=== PATIENT | female | born 1980 | race Caucasian/White ===

== ENCOUNTER 2021-05-18 18:21 | Emergency (ER) | payer OTHER, SELFPAY ==
[~2021-05-18] VITALS: Ht 165.1 cm; Wt 98.4 kg
--- NOTE | 2021-05-18 18:22 | NUR ---
REJI HENSON TO ER BED 2 Addendum: 05/18/21 at 1857 by [facility] 1822 REJI BERNSTEIN TO ER BED 2
[2021-05-18 18:25] VITALS: BP 124/85
[2021-05-18] MEDS ORDERED: ACETAMINOPHEN EXTRA STRENGTH 500 MG TAB PO ONE (18:35)
[2021-05-18] MEDS ORDERED: NACL 0.9% 1,000 ML IV ONE (18:35)
--- NOTE | 2021-05-18 18:35 | NUR ---
Pt biba for Fever, N/V, Chills, Headache. Pain level 8/10 headache. Pt able to ambulate from gurney to bed. Pt A&Ox4. GCS 15. Pt placed on cardiac tele monitor.
--- NOTE | 2021-05-18 18:38 | NUR ---
RADIOLOGY AT BEDSIDE TAKING XRAY
--- NOTE | 2021-05-18 18:49 | NUR ---
LAB BEDSIDE WITH PT
--- NOTE | 2021-05-18 19:23 | NUR ---
Received report from Milagros OVIEDO for continuity of care
--- NOTE | 2021-05-18 19:23 | NUR ---
Report and care endorsed to Tawny, RN
[2021-05-18 19:24] LABS: BASOPHILS # (AUTO) 0.1 K/uL (0.00-0.22); BASOPHILS % (AUTO) 0.4 % (0.0-2.0); HEMATOCRIT 32.9 % (36-48); HEMOGLOBIN 10.6 g/dL (12.0-16.0); LYMPHOCYTES # (AUTO) 2.2 K/uL (2.5-16.5); LYMPHOCYTES % (AUTO) 11.9 % (20.5-51.1); MEAN CORPUSCULAR HEMOGLOBIN 25 pg (27-31); MEAN CORPUSCULAR HGB CONC 32 g/dL (33-37); MEAN CORPUSCULAR VOLUME 78.7 fL (80-94); MONOCYTES # (AUTO) 0.6 K/uL (0.8-1.0); MONOCYTES % (AUTO) 3.5 % (1.7-9.3); NEUTROPHILS # (AUTO) 15.3 K/uL (1.8-7.7); NEUTROPHILS % (AUTO) 84.2 % (42.2-75.2); PLATELET COUNT (AUTO) 292 K/uL (140-450); RED BLOOD CELL COUNT(AUTO) 4.18 MIL/uL (4.20-5.40); RED CELL DISTRIBUTION WIDTH 13.8 % (11.6-13.7); WHITE BLOOD COUNT (AUTO) 18.1 K/uL (4.8-10.8)
--- NOTE | 2021-05-18 19:27 | NUR ---
Patient appears to be resting comfortably in bed- high fowlers with eyes open c/o feeling cold but patient has a fever with 100 farenheit. Vital Signs within normal limits. Respirations even and unlabored. Safety measures are in place, placed on environmental monitoring specialist and will continue to monitor patient.
--- NOTE | 2021-05-18 19:30 | NUR ---
assisted patient to bed ochoa to collect urine.
[2021-05-18 19:38] LABS: ALBUMIN 3.2 g/dL (3.4-5.0); ANION GAP 14.4 (8-16); CARBON DIOXIDE 24.3 mmol/L (21-32); CREATININE 0.8 mg/dL (0.6-1.3); POTASSIUM 3.7 mmol/L (3.5-5.1); TOTAL BILIRUBIN 0.5 mg/dL (0.0-1.0)
[2021-05-18 20:38] LABS: APPEARANCE,URINE SL CLOUDY (CLEAR); BILIRUBIN,URINE NEGATIVE (NEGATIVE); BLOOD, URINE NEGATIVE (NEGATIVE); COLOR,URINE YELLOW (YELLOW); LEUKOCYTE ESTERASE ,URINE NEGATIVE (NEGATIVE); NITRITE, URINE NEGATIVE (NEGATIVE); PH,URINE 8.5 (5.0-9.0); UGLUCOSE NEGATIVE (NEGATIVE)
--- NOTE | 2021-05-18 21:00 | NUR ---
PROVIDED COOLING MEASURES FOR PATIENT- ICE PACK BEHIND THE HEAD AND COLD WET TOWELS ON THE ABDOMEN AND UNDER THE BREAST
[2021-05-18] MEDS ORDERED: cefTRIAXone 1,000 MG VIAL ONE (22:30)
--- NOTE | 2021-05-18 23:36 | NUR ---
patient has fever of 100.0 farenheit patient is also very cold. ERMD made aware, was told to medicate with ibuprofen 800mg.
[2021-05-18] MEDS ORDERED: IBUPROFEN 800 MG TAB PO ONE (23:45)
--- NOTE | 2021-05-19 00:01 | NUR ---
Walked swabs of novel PCR and influenza A&B to lab, received by [id number] lab technician
--- NOTE | 2021-05-19 01:53 | NUR ---
IV removed, catheter intact and site benign. Applied folded 4x4 gauze and tape to stop bleeding.
--- NOTE | 2021-05-19 02:19 | NUR ---
Patient discharged with v/s stable. Written and verbal after care instructions given and explained. Patient verbalized understanding. Ambulatory with steady gait. ID band removed. All questions addressed prior to discharge. Advised to follow up with PMD.
[2021-05-19 02:23] VITALS: BP 118/74
== END 2021-05-19 02:19 | disposition home or self-care (01) ==
LOC: MED 18:21
DX: D72.829 Elevated white blood cell count, unspecified (principal); R50.9 Fever, unspecified; R53.1 Weakness; Z20.822 Contact with and (suspected) exposure to COVID-19
CPT/HCPCS: 36415; 71045; 74177; 80053; 81003; 83605; 85025; 86140; 87040; 87086; 87426; 87804; 93005; 96361; 96365; 99285; J0696; Q0092; Q9967; U0003